=== PATIENT | male | born 1985 | race Caucasian/White ===

== ENCOUNTER 2020-01-03 04:17 | Emergency (ER) | payer MEDICAID ==
[~2020-01-03] VITALS: Ht 188 cm; Wt 98.9 kg
[2020-01-03 04:56] VITALS: BP 119/60
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
--- NOTE | 2020-01-03 05:59 | NUR ---
Discharge instructions given. All questions and concerns addressed. Patient ambulatory with a steady gait. Belongings with patient.
== END 2020-01-03 06:01 | disposition home or self-care (01) ==
LOC: ED 05:40
DX: L05.01 Pilonidal cyst with abscess (principal)
CPT/HCPCS: 99283

== ENCOUNTER 2020-02-24 13:07 | Emergency (ER) | payer MEDICAID ==
[~2020-02-24] VITALS: Ht 188 cm; Wt 105.0 kg
[2020-02-24 13:13] VITALS: BP 130/64
--- NOTE | 2020-02-24 13:53 | NUR ---
Cole villegas in [facility] - 02/24/20 at 1356 by [employer] FULL SERVICE SUPERVISOR: INFORMED PT IS LEGAL HOLD NOW, PT MOVED TO SECURE ROOM.
--- NOTE | 2020-02-24 13:56 | NUR ---
ELECTRONIC SYSTEMS TECHNICIAN: PT TO ROOM
== END 2020-02-24 14:31 | disposition home or self-care (01) ==
LOC: ED 14:07
DX: S00.12XA Contusion of left eyelid and periocular area, initial encounter (principal); W18.39XA Other fall on same level, initial encounter; Y93.55 Activity, bike riding; Y92.098 Other place in other non-institutional residence as the place of occurrence of the external cause; Y99.8 Other external cause status
CPT/HCPCS: 99281

== ENCOUNTER 2020-04-07 11:03 | Emergency (ER) | payer MEDICAID ==
[~2020-04-07] VITALS: Ht 188 cm; Wt 104.8 kg
[2020-04-07 11:06] VITALS: BP 140/70
== END 2020-04-07 12:20 | disposition home or self-care (01) ==
LOC: ED 11:30
DX: S63.92XA Sprain of unspecified part of left wrist and hand, initial encounter (principal); W01.0XXA Fall on same level from slipping, tripping and stumbling without subsequent striking against object, initial encounter; Y93.89 Activity, other specified; Y92.098 Other place in other non-institutional residence as the place of occurrence of the external cause; Y99.8 Other external cause status
CPT/HCPCS: 29125; 29130; 99283

== ENCOUNTER 2020-04-20 11:51 | Emergency (ER) | payer MEDICAID ==
[~2020-04-20] VITALS: Ht 188 cm; Wt 105.4 kg
[2020-04-20 11:53] VITALS: BP 109/82
[2020-04-20] MEDS ORDERED: METOCLOPRAMIDE 10MG TABLET ONE (12:13)
[2020-04-20] MEDS ORDERED: KETOROLAC 30 MG/1 ML ONE (12:13)
[2020-04-20] MEDS ORDERED: DIPHENHYDRAMINE 25 MG CAPSULE ONE (12:13)
[2020-04-20] MEDS ORDERED: KETOROLAC 30 MG/1 ML IVPush ONE (12:30)
[2020-04-20] MEDS ORDERED: KETOROLAC 30 MG/1 ML IM ONE (12:30)
[2020-04-20] MEDS ORDERED: DIPHENHYDRAMINE 25 MG CAPSULE PO ONE (12:30)
[2020-04-20] MEDS ORDERED: METOCLOPRAMIDE 10MG TABLET PO ONE (12:30)
== END 2020-04-20 13:21 | disposition home or self-care (01) ==
LOC: ED 12:59
DX: G43.009 Migraine without aura, not intractable, without status migrainosus (principal); R11.0 Nausea; H53.149 Visual discomfort, unspecified; F17.200 Nicotine dependence, unspecified, uncomplicated
CPT/HCPCS: 96372; 99283; J1885; Q0163

== ENCOUNTER 2020-06-27 22:09 | Emergency (ER) | payer MEDICAID ==
[~2020-06-27] VITALS: Ht 188 cm; Wt 88.2 kg
[2020-06-27 22:17] VITALS: BP 149/71
--- NOTE | 2020-06-27 22:36 | NUR ---
PT TO ROOM, ERP AT BEDSIDE FOR EVAL. CALL LIGHT IN REACH.
== END 2020-06-28 00:11 | disposition home or self-care (01) ==
LOC: ED 23:24
DX: S51.012A Laceration without foreign body of left elbow, initial encounter (principal); S50.02XA Contusion of left elbow, initial encounter; S80.812A Abrasion, left lower leg, initial encounter; G43.909 Migraine, unspecified, not intractable, without status migrainosus; V13.0XXA Pedal cycle driver injured in collision with car, pick-up truck or van in nontraffic accident, initial encounter; Y93.89 Activity, other specified; Y92.410 Unspecified street and highway as the place of occurrence of the external cause; Y99.8 Other external cause status
CPT/HCPCS: 12031; 99285

== ENCOUNTER 2020-11-25 21:36 | Emergency (ER) | payer MEDICAID, OTHER ==
[~2020-11-25] VITALS: Ht 188 cm; Wt 105.0 kg
[2020-11-25 21:39] VITALS: BP 110/70
--- NOTE | 2020-11-25 21:50 | NUR ---
ER PROVIDER AT BEDSIDE FOR EVALUATION.
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
--- NOTE | 2020-11-25 21:58 | NUR ---
PATIENT'S LEFT ANKLE ELEVATED AND ICE PACK APPLIED.
--- NOTE | 2020-11-25 22:45 | NUR ---
Patient given discharge instructions and original of workers comp paperwork and they have confirmed that they understand the instructions. Patient stable, wheeled to discharge desk with instrument maintenance supervisor at side.
== END 2020-11-25 22:46 | disposition home or self-care (01) ==
LOC: ED 22:40
DX: S93.492A Sprain of other ligament of left ankle, initial encounter (principal); W01.0XXA Fall on same level from slipping, tripping and stumbling without subsequent striking against object, initial encounter; Y93.89 Activity, other specified; Y92.89 Other specified places as the place of occurrence of the external cause; Y99.8 Other external cause status
CPT/HCPCS: 99283

== ENCOUNTER 2020-11-28 16:43 | Emergency (ER) | payer OTHER ==
[~2020-11-28] VITALS: Ht 188 cm; Wt 100.7 kg
--- NOTE | 2020-11-28 16:59 | NUR ---
pt states ankle injury had xray and given crutches . was neg for rx. states wants to know why its still swollen
[2020-11-28 19:22] VITALS: BP 110/76
--- NOTE | 2020-11-28 19:23 | NUR ---
new splint applied to pt. amb using crutches
== END 2020-11-28 19:25 | disposition home or self-care (01) ==
LOC: ED 18:32
DX: S93.492A Sprain of other ligament of left ankle, initial encounter (principal); F17.200 Nicotine dependence, unspecified, uncomplicated; X50.1XXA Overexertion from prolonged static or awkward postures, initial encounter; Y93.89 Activity, other specified; Y92.89 Other specified places as the place of occurrence of the external cause; Y99.0 Civilian activity done for income or pay
CPT/HCPCS: 99283